=== PATIENT | female | born 2000 | race Caucasian/White ===

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

== ENCOUNTER 2019-01-05 14:31 | Inpatient (IN) ==
[2019-01-05] MEDS ORDERED: PENICILLIN G POTASSIUM 5 MILLIONUNT in DEXTROSE 5 % IN WATER 100 ML IV ONE ×2 (18:33)
[2019-01-05] MEDS ORDERED: OXYTOCIN/DEXTROSE 5%-WATER 30 UNITS/500 ML BAG IV ONE (18:33)
[2019-01-05] MEDS ORDERED: RINGER'S SOLUTION,LACTATED 1,000 ML IV ONE (18:33)
[2019-01-05] MEDS ORDERED: MISOPROSTOL 100 MCG TABLET VG PRN (18:33)
[2019-01-05] MEDS ORDERED: RINGER'S SOLUTION,LACTATED 1,000 ML IV PRN (19:00)
[2019-01-05 21:46] LABS: Cocaine Ur Negative (NEGATIVE); Urine Barbiturate Negative (NEGATIVE); Urine Benzodiazepines Negative (NEGATIVE); Urine Opiates Negative (NEGATIVE); Urine PCP Negative (NEGATIVE); Urine THC Negative (NEGATIVE)
[2019-01-05] MEDS: PENICILLIN G POTASSIUM 2.5 MILLIONUNT in DEXTROSE 5 % IN WATER 100 ML IV SCH ×2 (22:46)
[2019-01-06] MEDS: PENICILLIN G POTASSIUM 2.5 MILLIONUNT in DEXTROSE 5 % IN WATER 100 ML IV SCH ×12 (02:23→23:17)
[2019-01-06] MEDS: DEXTROSE 5%-LACTATED RINGERS 1,000 ML IV PRN ×3 (03:13→17:08)
--- NOTE | 2019-01-06 09:07 | HP ---
Chief Complaint - Chief Complaint Date of Service: 01/06/19 Time of Service: 09:01 Chief Complaint: induction of labor History of Present Illness: 18 yo at 39 1/7 weeks admitted for induction of labor due to history of shoulder dystocia. This complicated by asthma, anxiety/depression, bipolar, h/o shoulder dystocia and h/o preeclampsia. Rh positive Rubella immune GBS positive Medical History (Updated 01/02/19 @ 01:40 by Prabhjot Hutchison DO) History of shoulder dystocia in prior (Chronic) 4098g, no adverse outcome History of pre-eclampsia (Chronic) Depression (Acute) Onset Date: Unknown Asthma (Chronic) Onset Date: Unknown no hospitalizations Anxiety (Acute) Onset Date: Unknown Bipolar 1 disorder, depressed no medication Acute bacterial pharyngitis Onset Date: Unknown Allergic rhinitis (Resolved) Onset Date: Unknown Amenorrhea Onset Date: Unknown Anemia Onset Date: 01/13/17 Pre-eclampsia Onset Date: ~2016 Surgical History: Surgical History (Updated 12/05/18 @ 01:07 by Princess Blanchard MD) No pertinent past surgical history Family History: Family History (Updated 06/25/18 @ 09:21 by Samaria Butts RN) Brother Bipolar 1 disorder Grandmother Bipolar disorder maternal Mother Bipolar disorder Sister Bipolar disorder Father Alive and well Social History: (Last Updated 01/05/19 @ 18:59 by Iliana Espinosa RN) Social History: adopted: No foster care: No fpc: No Marital status: Single lives independently: No household members: family number of children: 1 current occupational status: unemployed, previously employed current occupation: Housekeeping Highest education level completed: high school graduate Service: No Tobacco: Smoking Status: Former smoker tobacco type: cigarettes Smoking cigarettes per day: 10 Years smoked: 2 Smoking pack-years: 1.00 Alcohol: alcohol intake: never Substance Use: substance use type: does not use Dietary Habits: caffeine: Yes caffeine comment: 1/week Type: carbonated beverages Exercise: Physical activity type: none Review Of Systems (GEN) - Review of Systems Generalized/Overall Review: Present: No Symptoms Reported EENTM: Present: No Symptoms Reported Respiratory: Present: No Symptoms Reported Cardiac: Present: No Symptoms Reported Abdominal: Present: No Symptoms Reported Genitourinary: Present: No Symptoms Reported Musculoskeletal: Present: No Symptoms Reported Neurological: Present: No Symptoms Reported Skin: Present: No Symptoms Reported Endocrine: Present: No Symptoms Reported Immunizations: IMMUNIZATION HX Immunizations Up to Date Yes History of Influenza Vaccine No Hx Pneumococcal Vaccination No Allergies/Adverse Reactions: Allergies Allergy/AdvReac Type Severity Reaction Status Date / Time No Known Allergies Allergy Verified 01/05/19 18:35 Home Medications: HOME MEDICATIONS vitamin,calcium,zlacxdgx-xtbu-oakvy acid tablet 1 tab PO DAILY 06/25/18 [Last Taken 01/05/19] aspirin 81 mg chewable tablet 81 mg PO DAILY #30 tab 09/13/18 [Last Taken 01/05/19] albuterol sulfate HFA 90 mcg/actuation aerosol inhaler 2 inh IH Q6H PRN #18 g 11/18/18 [Last Taken 12/02/18] ferrous sulfate 325 mg (65 mg iron) tablet 325 mg PO BID #30 tab 12/16/18 [Last Taken 01/05/19] Amox Tr/Potassium Clavulanate [Augmentin 875-125 Tablet] 875 mg PO Q12H #20 tab 01/02/19 [Last Taken 01/04/19] Exam - Exam Vital Signs: Vital Signs - Last Taken Temp 36.9 C 01/05/19 20:10 Pulse 101 H 01/05/19 20:10 Resp 18 01/05/19 20:10 BP 130/78 01/05/19 20:10 Pulse Ox 98 01/05/19 20:10 Constitutional: Present: Alert, Oriented x3, Cooperative, No distress ENT Exam: Present: hearing grossly normal Breasts: Present: Exam deferred Respiratory: Present: lungs clear, no respiratory distress Cardiovascular/Chest: Present: normal peripheral pulses, regular rate, rhythm Abdomen: Present: soft, nontender, no rebound tenderness, other - gravid /Rectal: Present: Other - Extremity: Present: no pedal edema, no calf tenderness Skin Exam: Present: normal color, warm/dry, no cyanosis Neurologic: Present: alert, normal mood/affect, oriented x 3 Appearance: Present: appropriate appearance, appropriate insight Eye contact: Present: cooperative, good eye contact Thoughts: Present: normal thought pattern Diagnostic Studies: Laboratory Results Negative (NEGATIVE) 01/05/19 21:30 Negative (NEGATIVE) 01/05/19 21:30 Ur Phencyclidine Scrn Negative (NEGATIVE) 01/05/19 21:30 Urine Amphetamine Negative (NEGATIVE) 01/05/19 21:30 U Benzodiazepines Scrn Negative (NEGATIVE) 01/05/19 21:30 Negative (NEGATIVE) 01/05/19 21:30 Negative (NEGATIVE) 01/05/19 21:30 NST reactive. Assessment/Plan - Assessment/Plan (1) Encounter for induction of labor Assessment: Admit for induction of labor to avoid another shoulder dystocia. Epidural PRN. IV PCN per GBS protocol. Monitor anxiety/depression and asthma for now. Problem: Acute (2) Group beta Strep positive Problem: Acute (3) History of shoulder dystocia in prior Problem: Chronic (4) History of pre-eclampsia Problem: Chronic (5) Anxiety Problem: Chronic (6) Depression Problem: Chronic Qualifiers: Depression Type: major depressive disorder Major depression recurrence: unspecified whether recurrent Major depression episode severity: mild (7) Asthma Problem: Chronic Qualifiers: Asthma severity: mild Asthma persistence: intermittent Asthma complication type: uncomplicated Qualified Code(s): J45.20 - Mild intermittent asthma, uncomplicated
--- NOTE | 2019-01-06 09:11 | PN ---
Progess Note - Interim Date: 01/06/19 Time: 09:10 Narrative: 01/06/19 09:10 Patient rating her contractions as mild to moderate Vital signs stable. Pitocin at 6 mu/min. FHT: 150 baseline, reassuring contractions q 2-3 min Cervix: 2/60/-3 Impression: Intrauterine at 39 1/7 weeks induction of labor for history of shoulder dystocia. Plan: Continue present plan
--- NOTE | 2019-01-06 13:24 | PN ---
Progess Note - Interim Date: 01/06/19 Time: 13:22 Narrative: 01/06/19 13:22 Patient rating her contractions as mild Vital signs stable. Pitocin at 10 mu/min. FHT: 140 baseline, reassuring contractions q 2-3 min Cervix: 3/50/-2, AROM-clear Impression: Intrauterine at 39-1/7 weeks, induction of labor for history of shoulder dystocia. Plan: Epidural when desires
[2019-01-06] MEDS ORDERED: NALOXONE HCL 1 MG/1 ML SYRG IV PRN (13:46)
[2019-01-06] MEDS ORDERED: ONDANSETRON HCL/PF 2 MG/ML VIAL IV PRN (13:46)
[2019-01-06] MEDS ORDERED: BUPIVACAINE HCL/0.9 % NACL/PF 250 ML EP PRN (13:46)
[2019-01-06] MEDS ORDERED: BUPIVACAINE HCL/PF 30 ML VIAL EP SCH (14:00)
[2019-01-06] MEDS ORDERED: fentaNYL CITRATE/PF 50 MCG/ML AMPUL IT SCH (14:00)
--- NOTE | 2019-01-06 14:25 | ANES ---
Anesthesia Pre Procedure Eval Vitals/Labs: Last Vital Signs Temp 36.9 C 01/05/19 20:10 Pulse 101 H 01/05/19 20:10 Resp 18 01/05/19 20:10 BP 130/78 01/05/19 20:10 Pulse Ox 98 01/05/19 20:10 HOME MEDICATIONS vitamin,calcium,naawpakp-sxwn-jgogs acid tablet 1 tab PO DAILY 06/25/18 [Last Taken 01/05/19] aspirin 81 mg chewable tablet 81 mg PO DAILY #30 tab 09/13/18 [Last Taken 01/05/19] albuterol sulfate HFA 90 mcg/actuation aerosol inhaler 2 inh IH Q6H PRN #18 g 11/18/18 [Last Taken 12/02/18] ferrous sulfate 325 mg (65 mg iron) tablet 325 mg PO BID #30 tab 12/16/18 [Last Taken 01/05/19] Amox Tr/Potassium Clavulanate [Augmentin 875-125 Tablet] 875 mg PO Q12H #20 tab 01/02/19 [Last Taken 01/04/19] Allergies/Adverse Reactions: Allergies Allergy/AdvReac Type Severity Reaction Status Date / Time No Known Allergies Allergy Verified 01/05/19 18:35 - Planned Procedure Planned Procedure: induction Medication List Reviewed:: Yes Allergies Verified: Yes Medical History (Updated 01/02/19 @ 01:40 by Prabhjot Hutchison DO) History of shoulder dystocia in prior (Chronic) 4098g, no adverse outcome History of pre-eclampsia (Chronic) Depression (Acute) Onset Date: Unknown Asthma (Chronic) Onset Date: Unknown no hospitalizations Anxiety (Acute) Onset Date: Unknown Bipolar 1 disorder, depressed no medication Acute bacterial pharyngitis Onset Date: Unknown Allergic rhinitis (Resolved) Onset Date: Unknown Amenorrhea Onset Date: Unknown Anemia Onset Date: 01/13/17 Pre-eclampsia Onset Date: ~2017 Surgical History (Updated 12/05/18 @ 01:07 by Princess Blanchard MD) No pertinent past surgical history Family History (Updated 06/25/18 @ 09:21 by Samaria Butts RN) Brother Bipolar 1 disorder Grandmother Bipolar disorder maternal Mother Bipolar disorder Sister Bipolar disorder Father Alive and well - Family Anesthesia History Family History:: no untoward family reactions to anesthesia - Airway/Neck/Teeth Within Normal Limits:: Yes Teeth Condition: intact Denture Type: None Neck Exam: full range of motion Mallampatti Score: 2 Thyromental (T-M) distance: > 6 cm Mandibulo Hyoid distance: > 3 cm - Respiratory Respiratory Physical: lungs clear Smoking Status: Former smoker Sleep Apnea currently treated: No Sleep Apnea by current assessment: No - Cardiovascular Tolerate Activity: Good Heart Sounds: S1 & S2, Regular - Anesthesia Assessment and Plan ASA Class: PS, II, E Anesthesia Type Plan: Epidural Planned difficult intubation/equipment available: No
--- NOTE | 2019-01-06 14:25 | ANES ---
Post Anesthesia Discharge - Transfer of Care Transfer of Care handoff given to nurse: Yes - Anesthesia Post Op Note Anesthesia Post Op Note: Care transferred to OB RN
--- NOTE | 2019-01-06 14:26 | ANES ---
Post Anesthesia Assessment - Vital Signs Vitals: Last Vital Signs Temp 36.9 C 01/05/19 20:10 Pulse 101 H 01/05/19 20:10 Resp 18 01/05/19 20:10 BP 130/78 01/05/19 20:10 Pulse Ox 98 01/05/19 20:10 Airway Patency: Normal - Mental Status Level Of Consciousness: Awake - Pain Level Pain Score: 2 - N/V Assessment Nausea/Vomiting Presence: None Dehydration:: No
--- NOTE | 2019-01-06 14:27 | ANES ---
Anesthesia Procedure Note Procedure Note: ANESTHESIA PROCEDURE NOTE Date of Procedure: 01/06/2019 Time of procedure: 1415. Performed by: Sandro Nielsen CRNA Scheme Technician: None. Preprocedure diagnosis: Active labor. Post procedure diagnosis: Same. Procedure: Insertion of labor epidural. Indications: The patient is a 18-year-old multigravida female in active labor requesting labor epidural for pain management. Findings: See below. Details of the procedure: The patient was placed in a sitting position. Back was prepped with DuraPrep. Patient was then draped in a sterile fashion. Lidocaine 1% was infiltrated to the skin and subcutaneous tissues at the level of the L3 4 interspace. The epidural space was identified using a 18-gauge Tuohy needle with [id number] technique. 20 mcg fentanyl was given intrathecally using a 27 ga. spinal needle. Epidural catheter was inserted without difficulty. Negative test dose was elicited using 5 mL of 1.5% preservative-free lidocaine plus epinephrine 1 200,000. The epidural catheter was then taped and secured in place. EBL: Minimal. Fluids: N/A. Specimen: N/A. Post procedure condition: The patient tolerated the procedure well. No complications were noted. Thank you for this consultation. Mendoza CRNA
[2019-01-07] MEDS ORDERED: HYDROCORTISONE 30 APPL TUBE TP PRN (00:35)
[2019-01-07] MEDS ORDERED: SENNOSIDES 8.6 MG TABLET PO PRN (00:35)
[2019-01-07] MEDS ORDERED: BISACODYL 10 MG SUPP.RECT RC PRN (00:35)
[2019-01-07] MEDS ORDERED: GLYCERIN/WITCH HAZEL LEAF 40 APPL BOX TP PRN (00:35)
[2019-01-07] MEDS ORDERED: OXYTOCIN/DEXTROSE 5%-WATER 30 UNITS/500 ML BAG IV ONE (00:35)
[2019-01-07] MEDS ORDERED: IBUPROFEN 800 MG TABLET PO PRN (00:35)
[2019-01-07] MEDS ORDERED: BENZOCAINE/MENTHOL 81 SPRAY CAN TP PRN (00:35)
[2019-01-07] MEDS ORDERED: ALBUTEROL SULFATE 200 PUFF INHALER IH PRN (00:36)
--- NOTE | 2019-01-07 00:39 | OR ---
Operative Report - Dictated Report Narrative: Spontaneous vaginal delivery of vigorously crying viable female at 0002 on 01/07/2019 with Apgars 8 and 9, weighing 3565 g in AKIL position with tight nuchal cord x1 reduced on perineum. Cord clamping delayed approximately 1 minute Placenta delivered complete, intact, with three vessel cord Estimated blood loss: Less than 50 ml Anesthesia: Epidural Lacerations: None History for MU History for MU Definition: * The number of deliveries resulting in a live the patient experienced prior to current hospitalization * The previous delivery of live twins or any live multiple gestation is considered one live event. *If primagravida or nulliparous is documented select zero for the number of previous live births. Live Events: Live Events: 1
[2019-01-07] MEDS: oxyCODONE HCL/ACETAMINOPHEN 1 TAB TABLET PO PRN (01:37)
[2019-01-07] MEDS: DOCUSATE SODIUM 100 MG CAPSULE PO SCH ×2 (11:45→21:31)
[2019-01-07] MEDS: PRENATAL VITS96/IRON FUM/FOLIC 1 TAB TABLET PO SCH (11:46)
[2019-01-07] MEDS: FERROUS SULFATE 325 MG TABLET PO SCH (11:46)
[2019-01-07] MEDS: IBUPROFEN 800 MG TABLET PO PRN (16:32)
[2019-01-08] MEDS: FERROUS SULFATE 325 MG TABLET PO SCH ×3 (05:56→21:25)
[2019-01-08] MEDS: PRENATAL VITS96/IRON FUM/FOLIC 1 TAB TABLET PO SCH (08:46)
[2019-01-08] MEDS: IBUPROFEN 800 MG TABLET PO PRN (08:46)
[2019-01-08] MEDS: DOCUSATE SODIUM 100 MG CAPSULE PO SCH ×2 (08:46→20:44)
--- NOTE | 2019-01-08 09:58 | PN ---
Subjective - Date and Time Seen Date: 01/08/19 Time: 09:58 Objective - Vitals Vitals: Last Vital Signs Temp 36.4 C 01/08/19 01:00 Pulse 90 01/08/19 01:00 Resp 20 01/08/19 01:00 BP 120/66 01/08/19 01:00 Pulse Ox 98 01/08/19 01:00 Patient denies complaints. Breast-feeding. Lochia wnl abdomen - soft, nontender Uterus -firm, at umbilicus - 1 no calf tenderness Impression: day #1 - s/p spontaneous vaginal delivery. Plan: Continue routine care Cauti Physician Documentation - Urinary Catheter Management Urethral ([place]) Date of Removal: 01/06/19 Time of Removal: 23:55 Assessment/Plan - Problems/Diagnosis (1) Encounter for induction of labor Problem: Acute (2) Group beta Strep positive Problem: Acute (3) History of shoulder dystocia in prior Problem: Chronic (4) History of pre-eclampsia Problem: Chronic (5) Anxiety Problem: Chronic (6) Depression Problem: Chronic Qualifiers: Depression Type: major depressive disorder Major depression recurrence: unspecified whether recurrent Major depression episode severity: mild (7) Asthma Problem: Chronic Qualifiers: Asthma severity: mild Asthma persistence: intermittent Asthma complication type: uncomplicated Qualified Code(s): J45.20 - Mild intermittent asthma, uncomplicated
[2019-01-08] MEDS: oxyCODONE HCL/ACETAMINOPHEN 1 TAB TABLET PO PRN (19:14)
[2019-01-09 08:08] VITALS: BP 116/65
[2019-01-09] MEDS: PRENATAL VITS96/IRON FUM/FOLIC 1 TAB TABLET PO SCH (08:44)
[2019-01-09] MEDS: DOCUSATE SODIUM 100 MG CAPSULE PO SCH (08:44)
[2019-01-09] MEDS: FERROUS SULFATE 325 MG TABLET PO SCH (08:44)
--- NOTE | 2019-01-09 09:20 | PN ---
Subjective - Date and Time Seen Date: 01/09/19 Time: : Objective - Vitals Vitals: Last Vital Signs Temp 37.0 C 01/09/19 08:05 Pulse 80 01/09/19 08:05 Resp 16 01/09/19 08:05 BP 116/65 01/09/19 08:05 Pulse Ox 98 01/09/19 08:05 Patient denies complaints. Lochia wnl abdomen - soft, nontender Uterus -firm, at umbilicus - 2 no calf tenderness Impression: day #2 - s/p spontaneous vaginal delivery. Plan: Routine discharge instructions Cauti Physician Documentation - Urinary Catheter Management Urethral ([place]) Date of Removal: 01/06/19 Time of Removal: 23:55 Assessment/Plan - Problems/Diagnosis (1) Encounter for induction of labor Problem: Acute (2) Group beta Strep positive Problem: Acute (3) History of shoulder dystocia in prior Problem: Chronic (4) History of pre-eclampsia Problem: Chronic (5) Anxiety Problem: Chronic (6) Depression Problem: Chronic Qualifiers: Depression Type: major depressive disorder Major depression recurrence: unspecified whether recurrent Major depression episode severity: mild (7) Asthma Problem: Chronic Qualifiers: Asthma severity: mild Asthma persistence: intermittent Asthma complication type: uncomplicated Qualified Code(s): J45.20 - Mild intermittent asthma, uncomplicated
[2019-01-09] MEDS: IBUPROFEN 800 MG TABLET PO PRN (11:00)
== END 2019-01-09 11:20 | disposition home or self-care (01) | DRG 807 ==
LOC: OB 18:27 → MS 01-07 12:44
PROVIDERS: ADMIT Obstetrics & Gynecology; ATTEND Obstetrics & Gynecology
CPT/HCPCS: 59025; 80307; J2405